=== PATIENT | male | born 1950 | race Asian ===

== ENCOUNTER 2024-05-30 17:55 | Emergency (ER) | payer BC, OTHER ==
[2024-05-30 18:53] VITALS: BP 177/84; PULSE 86; RESP 17; TEMP 98.2; BMI 25.1
[2024-05-30 20:16] LABS: EPI CELLS 1 /uL (0-25.1); HYALINE CASTS 0 /uL (0-3.1); PH,URINE 5.5 (5.0-8.0); URINE APPEARANCE CLEAR; URINE BILIRUBIN 1+ (NEGATIVE); URINE COLOR RED; URINE GLUCOSE (UA) NEGATIVE (NEGATIVE); URINE KETONE NEGATIVE (NEGATIVE); URINE LEUK ESTERASE 1+ (NEGATIVE); URINE NITRITE POSITIVE (NEGATIVE); URINE PROTEIN 3+ (NEGATIVE); URINE UROBILINOGEN 0.2 mg/dL (0.2-1.0); URINE WBC 0 /uL (0-25.8)
[2024-05-30 20:18] LABS: URINE RBC 114.4 /uL (0-23.9)
[2024-05-30] MEDS ORDERED: SULFAMETHOXAZOLE/TRIMETHOPRIM 800MG/160MG D.S. TABLET ONE (21:31)
[2024-05-30] MEDS: SULFAMETHOXAZOLE/TRIMETHOPRIM 800MG/160MG D.S. TABLET PO ONE (21:34)
== END 2024-05-30 21:34 | disposition home or self-care (01) ==
LOC: JER 17:55
DX: R33.9 Retention of urine, unspecified (principal); R31.9 Hematuria, unspecified
CPT/HCPCS: 81003; 99283-25